=== PATIENT | female | born 1990 | race Caucasian/White ===

== ENCOUNTER → 2019-07-08 09:13 | Outpatient (CLI) | payer OTHER, SELFPAY ==
--- NOTE | 2019-07-08 09:19 | DI.US.S_ITS ---
PROCEDURE: US OB >= 14 WEEKS FETUS INDICATIONS: ANATOMY SCAN OUTSIDE/PRIOR DATING DATA: Last menstrual period (LMP): 02/16/19. LMP-based estimated date of delivery (ROMAN): 11/23/19. First dating scan (date and location): 07/08/19. Estimated date of delivery (ROMAN) from first dating scan: 11/20/19. TECHNIQUE: Real-time scanning was performed of the fetus, with image documentation and biometric measurements. Endovaginal scanning: Not performed COMPARISON: None. FINDINGS: General: Presentation: Breech. Placenta: Placental position is posterior, without previa. Amniotic fluid index: 16.9 cm, normal range is 5-24 cm. heart rate: 155 beats per minute. Maternal cervical canal: 3.8 cm long. Normal lower limit is 2.5 cm. biometrics: Biparietal diameter: 5.1 cm, 21 weeks 3 days Head circumference: 18.1 cm, 20 weeks 3 days Abdominal circumference: 16.2 cm, 21 weeks 2 days Femur length: 3.1 cm, 19 weeks 5 days Estimated gestational age from initial scan: 20 weeks 2 days Composite gestational age from present scan: 20 weeks 5 days Estimated weight and percentile: 363 g, 62nd percentile Measurement variability for biometric dating: +/- 7 days from 14 weeks to 15 weeks 6 days gestation, +/- 10 days from 16 weeks to 21 weeks 6 days gestation, +/- 2 weeks from 22 weeks to 27 weeks 6 days gestation, +/- 3 weeks for 28 weeks gestation or later. weight reference: 4500 g or EFW >90/95% is considered macrosomia or large for gestational age. EFW <10% is small for gestational age. EFW 5% or less is considered intra-uterine growth restriction. Anatomic survey: Neuro: Ventricles are non-dilated at less than 10 mm. Cisterna magna is normal at 3-11 mm. Cerebellum is normal in size and morphology. Nuchal skin fold: Normal at less than 6 mm between 14-21 weeks gestational age. Face: Nose and lips, facial profile are normal. Spine: No evidence for spina bifida. Heart: 4-chambered heart is present, with normal ventricular outflow tracts. Diaphragm: Diaphragm is intact. Stomach: Left-sided stomach is present. Kidneys: No hydronephrosis. Normal is less than 5 mm in 2nd trimester, less than 7 mm in 3rd trimester. Cord: 3-vessel cord has orthotopic insertion. Bladder: Normal in size. Extremities: All 4 extremities identified. IMPRESSION: Single living intrauterine fetus in breech presentation demonstrating appropriate interval growth as above Normal anatomic survey Dictated by: Quentin Pastor M.D. on 07/08/2019 at 13:52 Approved by: Quentin Pastor M.D. on 07/08/2019 at 13:54
== END ==
PROVIDERS: PCP Family Medicine; Referring Provider Family Medicine; Visit Provider Family Medicine
DX: Z34.82 Encounter for supervision of other normal pregnancy, second trimester (principal); Z3A.20 20 weeks gestation of pregnancy
CPT/HCPCS: 76811

== ENCOUNTER → 2019-08-12 06:56 | Outpatient (CLI) | payer OTHER, SELFPAY ==
[2019-08-12 07:40] LABS: Hematocrit 34.2 % (36-46); Hemoglobin 11.6 g/dL (12.0-16.0); Mean Corpuscular HGB Conc 33.9 % (30-36); Mean Corpuscular Hemoglobin 30.5 PG (26-34); Platelet Count 260 X10^3/uL (150-400); Red Cell Distribution Width 12.8 % (11.6-14.8); White Blood Cell Count 9.1 X10^3/uL (4.5-11.0)
[2019-08-12 07:50] LABS: Glucose Fasting 84 mg/dL (70-100)
[2019-08-12 10:13] LABS: Glucose Tol Interpretation INTERPRETATION
[2019-08-12 10:26] LABS: Glucose 2 Hour 114 mg/dL (70-140)
[2019-08-12 10:26] LABS: Glucose 1 Hour 130 mg/dL (70-170)
== END ==
PROVIDERS: PCP Nurse Practitioner Obstetrics & Gynecology; Referring Provider Nurse Practitioner Obstetrics & Gynecology; Visit Provider Nurse Practitioner Obstetrics & Gynecology
DX: Z34.02 Encounter for supervision of normal first pregnancy, second trimester (principal); Z13.1 Encounter for screening for diabetes mellitus; Z67.91 Unspecified blood type, Rh negative
CPT/HCPCS: 36415; 82951; 82952; 85027; 86850

== ENCOUNTER → 2019-10-26 19:10 | Outpatient (ROUT) | payer OTHER, SELFPAY | PROVIDERS: PCP Nurse Practitioner Obstetrics & Gynecology; Visit Provider Nurse Practitioner Obstetrics & Gynecology | DX: Z34.90 Encounter for supervision of normal pregnancy, unspecified, unspecified trimester (principal); Z36.85 Encounter for antenatal screening for Streptococcus B; Z3A.36 36 weeks gestation of pregnancy | CPT/HCPCS: 87081 ==

== ENCOUNTER 2019-11-10 23:19 | Observation (INO) | payer OTHER, SELFPAY ==
--- NOTE | 2019-11-10 23:31 | P.TNLD_ITS ---
Visit Information Visit Information Date of evaluation: 11/10/19 Primary OB Provider: Vianey Sahu On-call OB Provider: Vianey Sahu Reason for Evaluation: Yes rule out labor Comments/Additional reasons for admission: 29YO @ [id number] by LMP and 12 wk US presents for evaluation of labor. Contractions started this evening and have slowly progressed in frequency and intensity. +FM. NO LOF. Noticed small vaginal bleeding around 2230. Tolerating contractions well, unable to sleep through them, not yet breathing through them. Uncomplicated PN care w/ CNM. Desires low intervention . [facility] Medical History (Updated 11/10/19 @ 23:36 by Vianey Sahu CNM) History of ITP (Acute) Surgical History (Updated 11/10/19 @ 23:37 by Vianey Sahu CNM) History of augmentation of both breasts (Acute) Social History (Updated 11/10/19 @ 23:37 by Vianey Sahu CNM) marital status: household members: spouse lives independently: Yes caregiver/support person: No housing: house education level: college occupational status: employed [employer]: [employer] Review of Systems Review of Systems ROS: Yes All systems reviewed with the patient and are negative except as otherwise documented Exam Vital Signs (past 8 hours): BP 120/77, HR100, RR16, T97.7F Temporal Presentation: vertex Evaluation Evaluation Baseline heart rate: 135 Variability: Moderate (11-25) monitor accelerations: Present monitor decelerations: Absent Contraction Frequency (minutes): 3 Uterine Contraction Intensity: Mild Category of Tracing: I Cervical dilation (cm): 1 Cervical effacement (%): 70 station: -1 Diagnosis, Plan/Disposition Plan/Disposition Plan: A: Term primipara Early labor No indication for GBS prophylaxis Cat I FHR P: Cpunseled on minimal cervical change since last exam in clinic. Offered 2 hour recheck. Pt plans to stay, rather than drive 30 minutes home and back. OB Disposition: other (observation)
== END 2019-11-11 02:07 | disposition home or self-care (01) ==
PROVIDERS: Admitting Provider Nurse Practitioner Obstetrics & Gynecology; PCP Nurse Practitioner Obstetrics & Gynecology; Referring Provider Nurse Practitioner Obstetrics & Gynecology; Visit Provider Nurse Practitioner Obstetrics & Gynecology
DX: Z3A.38 38 weeks gestation of pregnancy (principal)
CPT/HCPCS: 59025; 59050; G0378; G0379

== ENCOUNTER 2019-11-11 06:17 | Inpatient (IN) | payer OTHER, SELFPAY ==
--- NOTE | 2019-11-11 06:22 | P.HPOB_ITS ---
OB HPI Date/Time Date of admission: 11/11/19 Date Patient Seen: 11/11/19 Time Patient Seen: 06:10 History of Present Condition Chief complaint: evaluation of labor : 1 Para: 0 Estimated Date of Delivery: 11/23/19 Estimated Gestational Age (weeks): 38.2 Narrative: Anne Ghosh is a 29 year old female @ [id number] here for evaluation of labor. Contractions started last evening, immediately 2-3 minutes apart and slowly increasing in intensity. Was seen in triage [id number] with minimal cervical change. Now reports SROM @ 0530, brown fluid. No VB. Breathing through strong contractions, requesting epidural. Uncomplicated PN care w/ transfer of care from [facility] to [facility] @ 20wks. is present and supportive. History of Present care: good care Dating criteria: LMP confirmed by 1st trimester US Ultrasounds: normal mid trimester US Obstetrical complications: none Medical complications: none Preadmission Labs Blood type: B (-) negative -: Antibody screen: negative, GBS status: negative, HBsAG: negative, HIV: negative and RPR/VDLR: negative -: Chlamydia screen: not detected and Gonorrhea screen: not detected -: Rubella: immune and Varicella: immune HCT: 34.2 HCAB: negative 3 hr GTT: 2 hr (84/130/114) Evaluation Evaluation Baseline heart rate: 145 Variability: Moderate (11-25) monitor accelerations: Absent monitor decelerations: Variable Contraction Frequency (minutes): 2 Uterine Contraction Intensity: Strong/Firm Category of Tracing: II Cervical dilation (cm): 3 Cervical effacement (%): 90 station: -1 Non-invasive Membranes Rupture Test: positive Comments: ROM visually confirmed, copious meconium stained amniotic fluid [facility] Medical History History of ITP (Acute) Surgical History History of augmentation of both breasts (Acute) Social History marital status: household members: spouse lives independently: Yes caregiver/support person: No housing: house education level: college occupational status: employed [employer]: [employer] Med[employer] Home Medications and Allergies Home Medications Medication Instructions Recorded Confirmed Type Claritin 1 tab 11/11/19 History no.144-folic acid 1 mcg PO 11/11/19 History [] Allergies Allergy/AdvReac Type Severity Reaction Status Date / Time Sulfa (Sulfonamide Allergy Unknown Verified 11/11/19 06:33 Antibiotics) Review of Systems Review of Systems ROS: Yes All systems reviewed with the patient and are negative except as otherwise documented Exam Vital Signs (past 8 hours): BP 121/84, HR 94bpm, T97.8F Temporal Uterus Location (Fundal Height): 38 Presentation: vertex Estimated Weight (lbs): 7 Amniotic Fluid: meconium Objective Labs Result Diagrams: 11/11/19 06:30 Labs: CBC and T&S pending Assessment and Plan Assessment and Plan Assessment and Plan narrative: A: Term primipara SROM x 1 hours without sx of infection Meconium stained amniotic fluid No indication for GBS prophylaxis Cat II FHR, overall reassuring P: Admit, routien orders w/ CBC, T&S and epidural DIANDRA. Continuous labor support. Will notify OB back-up of patient admission status and POC. Continuous EFM. Reassess in 2-4 hours or sooner, PRN. Time Spent with Patient Total time spent with greater than 50% in coordination of care (as documented) at patient's floor/unit and/or counseling patient:: 15-24 minutes
[2019-11-11 06:47] LABS: Add Manual Diff / Slide Review NO; Basophils Absolute Auto 100 /uL (0-100); Basophils Percent Auto 0.7 % (0-2); Eosinophils Absolute Auto 100 /uL (0-450); Eosinophils Percent Auto 0.7 % (2-4); Hematocrit 35.4 % (36-46); Hemoglobin 11.6 g/dL (12.0-16.0); Lymphocytes Absolute Auto 1800 /uL (1100-4500); Lymphocytes Percent Auto 12.4 % (25-40); Mean Corpuscular HGB Conc 32.7 % (30-36); Mean Corpuscular Hemoglobin 26.8 PG (26-34); Monocytes Absolute Auto 1000 /uL (0-900); Monocytes Percent Auto 6.6 % (3-14); Neutrophils Absolute Auto 11800 /uL (1500-7000); Neutrophils Percent Auto 79.6 % (50-75); Platelet Count 202 X10^3/uL (150-400); Red Blood Cell Count 4.32 X10^6/uL (4.0-5.2); Red Cell Distribution Width 13.6 % (11.6-14.8); White Blood Cell Count 14.8 X10^3/uL (4.5-11.0)
[2019-11-11] MEDS: FENT 2MCG/ML BUPIV 0.125% EPI 200 MCG/100 ML PLAST..BAG 10 MCG EPIDURAL ×2 (07:10→15:04)
[2019-11-11] MEDS: LACTATED RINGERS 1,000 ML 100 ML IV ×5 (07:10→22:59)
[2019-11-11 07:51] VITALS: BP 121/89
[2019-11-11 08:00] LABS: COVID19 -Nasal RAPID Negative (Negative)
--- NOTE | 2019-11-11 13:06 | PM.OBPNLAB ---
Date/Time Date Patient Seen: 11/11/19 Time Patient Seen: 10:00 Pain Control Pain control: epidural Comments: More comfortable after epidural placement, though working w/ anesthesia to improve persistent pain on left side. Continues leaking of moderate amounts of meconium stained amniotic fluid. Pelvic Exam Dilation (cm): 6 Effacement (%): 90 station: -1 Comments: bloody show on glove Contractions Date/Time contractions began: 11/10/19 @ 1900 Contractions on admission: regular Monitor mode: External Pitocin rate (mU/min): 0 Contraction frequency (min): 3 Contraction duration (min): 1 Contraction pattern: Regular Contraction intensity: Strong/Firm Status status: Category ll Heart Rate Baseline: 150 Monitor Accelerations: Present Monitor Decelerations: Early Monitor Variability: Moderate Comments: Occasional early and variable declerations, rare late decelerations, none recurrent. Assessment and Plan Assessment: active labor Plan: continuous present management Comments: aware of FHR, meconiums stained amniotic fluid and labor progress. Encourage frequent position changes w/ peanut ball. Reassess in 4 hours or sooner, PRN.
--- NOTE | 2019-11-11 14:16 | PM.OBPNLAB ---
Date/Time Date Patient Seen: 11/11/19 Time Patient Seen: 14:00 Pain Control Pain control: epidural Pelvic Exam Dilation (cm): 7 Effacement (%): 90 station: -1 Amniotic membrane status: Leaking Comments: Meconium stained amnioitic fluid and bloody show. Anterior cervix is slightly swollen. Contractions Contractions on admission: regular Monitor mode: External Pitocin rate (mU/min): 0 Contraction frequency (min): 2 Contraction duration (min): 1 Contraction pattern: Regular Contraction intensity: Moderate Status status: Category ll Heart Rate Baseline: 155 Monitor Accelerations: Present Monitor Decelerations: Early Monitor Variability: Moderate Comments: Primarily Cat I, overall reassuring. Assessment and Plan Assessment: active labor Plan: continuous present management Comments: Counseled on slow progress and recommend more position changes (adding exaggerated Lugo and high cotter's). Reassess in 2 hours. Will consider IUPC if no change at that time.
[2019-11-11 17:07] LABS: Add Manual Diff / Slide Review NO; Basophils Absolute Auto 100 /uL (0-100); Basophils Percent Auto 0.4 % (0-2); Eosinophils Absolute Auto 0 /uL (0-450); Hematocrit 32.8 % (36-46); Hemoglobin 10.8 g/dL (12.0-16.0); Lymphocytes Absolute Auto 1000 /uL (1100-4500); Lymphocytes Percent Auto 5.6 % (25-40); Mean Corpuscular Hemoglobin 27.1 PG (26-34); Monocytes Absolute Auto 1400 /uL (0-900); Monocytes Percent Auto 8.3 % (3-14); Neutrophils Absolute Auto 14800 /uL (1500-7000); Neutrophils Percent Auto 85.7 % (50-75); Platelet Count 238 X10^3/uL (150-400); Red Cell Distribution Width 13.5 % (11.6-14.8); White Blood Cell Count 17.3 X10^3/uL (4.5-11.0)
[2019-11-11] MEDS: OXYTOCIN PREMIX 30 UNIT/500 ML PLAST..BAG IV (18:10)
--- NOTE | 2019-11-11 18:13 | PM.OBPNLAB ---
Date/Time Date Patient Seen: 11/11/19 Time Patient Seen: 18:00 Pain Control Pain control: epidural Comments: Tolerating frequent position changes well. Has been able to get some sleep. VS: BP 115/69, HR 123, T 37.6C Temporal, repeat oral temp 99.3F Pelvic Exam Dilation (cm): 8 Effacement (%): 90 station: -1 Amniotic membrane status: Leaking Comments: No change since exam at 1600. IUPC placed and initial MVUs 110. Contractions Contractions on admission: regular Monitor mode: External Pitocin rate (mU/min): 0 Contraction frequency (min): 2 Contraction pattern: Regular Contraction intensity: Moderate Intrauterine tone measurement: 110 Status status: Category ll Heart Rate Baseline: 170 Monitor Accelerations: Present Monitor Decelerations: Absent Monitor Variability: Moderate Assessment and Plan Assessment: active labor Plan: begin patient augmentation Comments: Counseled patient on persistent OP presentation, minimal cervical change and inadequate MVUs. Recommend starting pitocin augmentation and started conversation on possible need for . Patinet agrees to pitocin and wants to continue to try for a vaginal . Counseled patient on tachycardia, intermittent maternal tachycardia and slightly elevated WBCs while remaining afebrile. Will continue to monitor temperature closely. Notified of maternal and status and plan of care. Reassess in 2 hours w/ repeat CE after 2 hours of adequate contractions.
--- NOTE | 2019-11-11 20:50 | PM.OBPNLAB ---
Date/Time Date Patient Seen: 11/11/19 Time Patient Seen: 20:45 Pain Control Pain control: epidural Comments: BP 119/70, HR 121bpm, T 38C Temporal Pelvic Exam Dilation (cm): 8 Effacement (%): 90 station: -1 Amniotic membrane status: Leaking Comments: meconium stained. IUPC in place Contractions Contractions on admission: regular Monitor mode: External Pitocin rate (mU/min): 5 Contraction frequency (min): 2 Contraction duration (min): 2 Contraction pattern: Regular Contraction intensity: Moderate Intrauterine tone measurement: 220 Status status: Category ll Heart Rate Baseline: 165 Monitor Accelerations: Present Monitor Decelerations: Variable Monitor Variability: Moderate Assessment and Plan Plan: Comments: Counseled patient on recommendation for arrest of active phase labor w/ likely confirmation of chorioamnionitis if temp >100.4 confirmed in 30 minutes. Patient agrees. Pitocin stopped and IUPC removed. Alex Silva, and notified.
[2019-11-11 21:06] VITALS: TEMP 38
[2019-11-11] MEDS: ACETAMINOPHEN 325 MG TABLET 975 MG PO (21:06)
[2019-11-11] MEDS: CEFAZOLIN 2 GM/100 ML FROZ.PIGGY IV (21:06)
--- NOTE | 2019-11-11 21:28 | PM.PREOP ---
Pre-operative Note COVID-19 COVID-19 status: Negative Result date/Date tested (Pos, Neg/Pending): 11/11/19 Interval Note History & Physical reviewed/Exam performed by Physician: Yes Changes to H&P: Yes H&P completed within 30 days and has changed as indicated here:: pt progressed in labor to 7 cm and had arrest of active phase of labor at 7 cm. Pt was consented to proceed with C section for delivery. I was consulted for the arrest of active phase and C section.
--- NOTE | 2019-11-11 21:31 | PM.CN ---
History of Present Illness Consult details Date Patient Seen: 11/11/19 Time Patient Seen: 21:20 Chief complaint: evaluation of labor Reason for consult: arrest of active phase of labor Requesting provider: Vianey Sahu Narrative: 29-year-old G1 female presented at 38 weeks with spontaneous rupture membranes in early labor early this morning. She progressed to 7-8 cm and had no further cervical change. Baby was noted to be in the OP position. IUPC placed and contractions were inadequate. Pitocin was started and MVU measured by IUPC showed adequate contractions for 2 hours but there was no further cervical change. I was consulted for section for delivery, due to the arrest of the active phase labor. Baby intermittently had baseline FHR rate to 170, but she was afebrile. WBC checked and it was 17. On arrival early this morning it was 14.8 so not a large increased. She was observed. FHR decreased to 150-160 with intermittent 170. Variability was moderate. There was only a rare mild variable deceleration. At approximately 830 she developed a temperature to 100.4? F. Antibiotics were started at that time. Since I had been consulted for the at this time, the patient received Ancef for preoperative prophylaxis and to start for the fever, for possible intrauterine infection. Meds Home Medications and Allergies Home Medications Medication Instructions Recorded Confirmed Type no.144-folic acid 1 mcg PO DAILY 11/11/19 11/11/19 History [] Allergies Allergy/AdvReac Type Severity Reaction Status Date / Time Sulfa (Sulfonamide Allergy Unknown Verified 11/11/19 06:33 Antibiotics) Exam Vital Signs (past 8 hours): - 11/11/19 21:06 Temperature 100.4 F H Narrative Exam Narrative: General: Patient appears uncomfortable when contractions occur. No acute distress between contractions. Cervical exam at approximately 8:30 pm 7-8 cm per M Sven CARRERA EFM: Currently baseline 155-160, moderate variability, rare mild variable deceleration. Positive acceleration. Category 2 [place] Q 3 minutes contraction Objective Labs Result Diagrams: 11/11/19 16:43 Labs: Laboratory Results - last 24 hr 11/11/19 11/11/19 11/11/19 06:25 06:30 06:30 WBC 14.8 H RBC 4.32 Hgb 11.6 L Hct 35.4 L MCV 82.0 MCH 26.8 MCHC 32.7 RDW 13.6 Plt Count 202 Neut % (Auto) 79.6 H Lymph % (Auto) 12.4 L [place] % (Auto) 6.6 Eos % (Auto) 0.7 L Baso % (Auto) 0.7 Neut # (Auto) 64682 H Lymph # (Auto) 1800 [place] # (Auto) 1000 H Eos # (Auto) 100 Baso # (Auto) 100 COVID-19 PCR Negative Blood Type B Negative Antibody Screen Negative 11/11/19 16:43 WBC 17.3 H RBC 4.00 Hgb 10.8 L Hct 32.8 L MCV 82.0 MCH 27.1 MCHC 33.0 RDW 13.5 Plt Count 238 Neut % (Auto) 85.7 H Lymph % (Auto) 5.6 L [place] % (Auto) 8.3 Eos % (Auto) 0.0 L Baso % (Auto) 0.4 Neut # (Auto) 56529 H Lymph # (Auto) 1000 L [place] # (Auto) 1400 H Eos # (Auto) 0 Baso # (Auto) 100 COVID-19 PCR Blood Type Antibody Screen Assessment & Plan Assessment and plan (1) Arrested active phase of labor: Status: Acute (2) Intrapartum fever: Status: Acute Assessment & Plan narrative: Patient consented to proceed with section for delivery. I discussed the procedure. I discussed small risk of bleeding, infection, injury to adjacent organs including bowel, bladder and ureters. I discussed small risk of injury to the baby. Verbal and written consent obtained. Ancef currently infusing for coverage for the intrapartum fever, with the ROM. She had some intermittent tachycardia but no persistent tachycardia. Tylenol given. OR crew already notified and currently OR room is being cleaned after a prior lower case. To proceed to the OR shortly.
--- NOTE | 2019-11-11 22:13 | SUR.OPER ---
Supine on Padded OR bed, head on pillow, safety belt at thigh, arms secured on padded arm boards at <90 degrees abduction. Bump under right buttock. Legs uncrossed with pillow under knees, gel pad to heels, tape over blanket to lower legs.
--- NOTE | 2019-11-11 22:23 | SUR.OPER ---
live female at 2223
[2019-11-11 23:23] VITALS: BP 104/69; PULSE 96; RESP 16; TEMP 36.7; O2SAT 97
--- NOTE | 2019-11-11 23:23 | PM.PROC.1 ---
Procedures Date/Time Date of procedure: 11/11/19 Time of procedure: 22:23 General Procedure description: I assisted the OB institutional asset manager in the section for this patient. My responsibilities included retracting and suctioning, providing fundal pressure during delivery and following with suture during closure. Please see the OB's note for details of the surgery. Complications: none
--- NOTE | 2019-11-11 23:26 | PM.OP.1 ---
Operative Date/Time/Diagnoses Date of procedure: 11/11/19 Time of procedure: 23:26 Pre-op diagnosis: Thirty weeks, arrest of active phase of labor Post-op diagnosis: same (Persistent OP position) Procedure & Clinicians Procedure: Primary lower transverse section Same procedure as scheduled: Yes Indications: Arrest of active phase of labor at 7 cm despite adequate contractions, documented by adequate MVU. Persistent OP position on exam Surgeon: Mckenna Capone Biochemistry Technician: Vianey Sahu Anesthesia Type: Spinal Operative Notes Findings: Baby's head was low in the pelvis, OP position. A viable vigorous female was delivered. Weight and Apgars pending. Normal uterus and ovaries. Closure Type: primary Specimen(s): other (Cord blood collected for storage and cord blood to lab.) Estimated Blood Loss (mL): 500 Procedure in detail: IV fluids: 2000 ml crystalloid Urine output: 600 mL Description of procedure: She was transferred from the center to the operating room. Her epidural anesthesia was giving less relief the last hour labor. Attempt made to bolus her epidural for the but the anesthesia was not adequate. Epidural catheter was pulled by anesthesia and spinal anesthesia was placed. She was placed in the supine position. Horn catheter was already in place. She was placed in the supine position and she was prepped and draped in routine sterile fashion. A Pfannenstiel skin incision was made in the lower abdomen and carried down to the level of the fascia. The fascia was incised in the midline and was bluntly extended transversely. The superior and inferior edges of the fascia were elevated and dissected off the rectus muscles with sharp and blunt dissection. The muscles were bluntly split in the midline. The parietal peritoneum was elevated, incised and extended bluntly. The bladder blade was placed. No distinct visceral peritoneal reflection, bladder flap was noted and the bladder flap was not taken down. The bladder blade retractor was placed. A transverse incision was made in the lower uterus and the incision was extended transversely with blunt dissection. Light meconium fluid was noted. The head was low in the pelvis. It palpated to be OP. The head was able to be dislodged and elevated to the uterine incision without difficulty. The head was delivered through the incision with some mild fundal pressure. A loop of cord was noted near the shoulders, but was not wrapped around the body. No nuchal cord was present. Anterior and posterior shoulders followed by the body were delivered without difficulty. The cried spontaneously. Delayed cord clamping was performed for 30 seconds. Cord was then clamped and cut and the was handed off to respiratory therapy who was present for delivery. The umbilical cord was then prepped with the patient's cord blood collection kit sterile dry cleaner. Using the cord blood collection kit, the placenta was punctured and cord blood was collected. When no further blood flows through the umbilical cord, the specimen was handed off. The placenta was manually removed. It appeared intact with a normal three-vessel cord. . The uterus was brought through the abdominal incision and was swept clean of adherent clots and membranes. The uterus was then closed in 2 layers with 0 Vicryl, the 1st layer being in running locking continuous fashion and the 2nd layer being in a vertical imbricating type fashion. Hemostasis was noted. The tubes and ovaries were inspected and noted to be normal. Posterior to the uterus was suction of some fluid and blood. The uterus was placed back into the maternal abdomen. The paracolic gutters were inspected and wiped of some clot, minimal blood and fluid. The anterior cul-de-sac was inspected and some clot was removed. The uterine incision was re- inspected and good hemostasis was noted. The pelvis was irrigated. Repeat inspection showed continued hemostasis. The abdomen was closed. The muscles were reapproximated with 3 interrupted sutures of 0 Vicryl. The inferior surface of the fascia was inspected where the muscles had been dissected off and hemostasis was noted in this area. Fascia was closed with running continuous suture of 0 Vicryl. She did not have much depth to her subcutaneous tissue. The subcutaneous tissue was irrigated. A small capillary was coagulated for hemostasis. The skin was closed with a subcuticular suture of 4 0 Monocryl. Steri-Strips and sterile Aquacel dressing was placed. She tolerated the procedure well and went to the recovery room in stable condition. Complications: none Post-operative Condition: stable Disposition: PACU [facility]care[facility]
[2019-11-11 23:28] VITALS: BP 107/74; PULSE 100; RESP 13; O2SAT 98
[2019-11-11 23:33] VITALS: BP 112/63; PULSE 87; RESP 16; O2SAT 98
[2019-11-12] MEDS: KETOROLAC 30 MG/ML VIAL IV ×3 (07:18→18:12)
[2019-11-12] MEDS: LACTATED RINGERS 1,000 ML 100 ML IV (07:18)
[2019-11-12 08:02] LABS: Add Manual Diff / Slide Review NO; Basophils Absolute Auto 100 /uL (0-100); Basophils Percent Auto 0.4 % (0-2); Eosinophils Absolute Auto 0 /uL (0-450); Eosinophils Percent Auto 0.1 % (2-4); Hematocrit 25.9 % (36-46); Hemoglobin 8.5 g/dL (12.0-16.0); Lymphocytes Absolute Auto 1300 /uL (1100-4500); Lymphocytes Percent Auto 7.6 % (25-40); Mean Corpuscular Hemoglobin 26.8 PG (26-34); Mean Corpuscular Volume 81.3 fL (80-100); Monocytes Absolute Auto 1400 /uL (0-900); Neutrophils Absolute Auto 14400 /uL (1500-7000); Neutrophils Percent Auto 83.9 % (50-75); Platelet Count 216 X10^3/uL (150-400); Red Blood Cell Count 3.18 X10^6/uL (4.0-5.2); Red Cell Distribution Width 13.9 % (11.6-14.8); White Blood Cell Count 17.2 X10^3/uL (4.5-11.0)
[2019-11-12] MEDS: DOCUSATE 250 MG CAPSULE PO (09:10)
--- NOTE | 2019-11-12 09:32 | PM.PNPO.1 ---
Subjective Subjective Date Patient Seen: 11/12/19 Time Patient Seen: 09:33 Interval history: Patient feels well. Incisional discomfort overall controlled. She is only currently using the Toradol. Currently , baby latched well this morning. Lochia is normal Tolerating oral food. No flatus yet. Horn catheter still in place. Denies fever, chills, nausea or emesis. Exam Vital Signs (past 8 hours): Oxygen Delivery Method Room Air Afebrile BP 107/63 pulse 1 0 to respiratory rate 18 Narrative Exam Narrative: General: Well-appearing female Abdomen: Soft, nontender, nondistended. Dressing intact, only 1 tiny old blood stained area Fundus U -2, firm, nontender Extremities: Trace pedal edema Objective Labs Result Diagrams: 11/12/19 07:57 Labs: Laboratory Results - last 24 hr 11/11/19 11/12/19 16:43 07:57 WBC 17.3 H 17.2 H RBC 4.00 3.18 L Hgb 10.8 L 8.5 L Hct 32.8 L 25.9 L MCV 82.0 81.3 MCH 27.1 26.8 MCHC 33.0 33.0 RDW 13.5 13.9 Plt Count 238 216 Neut % (Auto) 85.7 H 83.9 H Lymph % (Auto) 5.6 L 7.6 L [place] % (Auto) 8.3 8.0 Eos % (Auto) 0.0 L 0.1 L Baso % (Auto) 0.4 0.4 Neut # (Auto) 35590 H 74154 H Lymph # (Auto) 1000 L 1300 [place] # (Auto) 1400 H 1400 H Eos # (Auto) 0 0 Baso # (Auto) 100 100 Assessment & Plan Post-op Postoperative Procedures: Procedures Operation Date: 11/11/19 21:45 Actual Procedures Side Surgeon p Section Mckenna Capone MD Postoperative day: 1 Postoperative status: doing well Postoperative status narrative: Await GI return Postoperative plan: routine post-op care Postoperative plan narrative: Discontinue Horn catheter Time Spent With Patient Time with patient: less than 15 minutes
[2019-11-12] MEDS: diphenhydrAMINE 50 MG/ML VIAL 25 MG IV (12:15)
[2019-11-12 17:08] VITALS: TEMP 36.8
[2019-11-12] MEDS: OXYCODONE IR 5 MG TABLET PO ×2 (17:08→21:42)
[2019-11-12] MEDS: LANOLIN OINT 7 GM 1 APPLIC TOP (17:08)
[2019-11-13] MEDS: IBUPROFEN 600 MG TABLET PO ×2 (02:27→12:19)
[2019-11-13] MEDS: OXYCODONE IR 5 MG TABLET PO ×4 (02:28→16:50)
[2019-11-13] MEDS: DOCUSATE 250 MG CAPSULE PO (08:08)
--- NOTE | 2019-11-22 16:52 | P.DS_ITS ---
History of Present Illness History of Present Illness Date Patient Seen: 11/13/19 Time Patient Seen: 13:00 Chief complaint: evaluation of labor Narrative: 29-year-old G1 female was admitted by her primary OB provider, Vianey Sahu CNM, at 38 weeks 2 days with spontaneous rupture membranes and labor. Discharge Providers Provider Date of admission: 11/11/19 06:17 Discharge Date: 11/13/19 Primary care physician: Vianey Sahu CNM Consults: 11/11/19 06:21 Consult to Anesthesiology Urgent Comment: Consulting Provider: Anesthesiologist Reason for consultation: when requested Has provider been notified: No 11/11/19 23:48 Consult to Renovator Machine Operator Routine Comment: Discharge provider: Mckenna Capone MD Summary Hospital Course Discharge Diagnosis: Arrest of active phase of labor Status post primary lower transverse section Hospital Course: Patient progressed in active labor to 7-8 cm. She had no further cervical change. Baby appeared to be persistent OP position. IUPC was placed and contractions were noted to be in adequate. She received Pitocin. After 2 hours of adequate contractions she had no further cervical change and I was consulted for primary section for delivery. The patient also just developed an intrapartum fever. Baby had intermittently had some tachycardia, but then returned to normal heart rate. She was given heard preoperative dose of Ancef at the time of calling the to also cover for the intrapartum fever. She had a primary lower transverse section without complications. She delivered a viable female infant weighing 7 lb 13 oz with Apgars of 8 and 9. She had a normal postoperative course. The baby did . She is without problems. She had normal GI return. Lochia was normal. Her pain was controlled with the pain medication. She was discharged home on postoperative day 2 in good condition. Status at Discharge Cognitive/behavioral status at discharge: oriented Functional status at discharge: independent ambulation Overall status at discharge: patient is progressing back to baseline Time Spent with Patient Time spent: Less than 30 minutes Exam Vital Signs (past 8 hours): Oxygen Delivery Method Room Air Afebrile, BP normal. Narrative Exam Narrative: General: Well-appearing female. No acute distress Abdomen soft, nontender, nondistended. Dressing was dry, but not adhering well in 1 area and her Aquacel dressing was replaced. The incision was dry and intact area, no erythema or signs of infection. Fundus U -2, firm, nontender Extremities. Trace pedal edema Objective Labs Result Diagrams: 11/12/19 07:57 Discharge Plan Discharge Plan Patient Disposition: Home Discharge orders & Medications Prescriptions: New Wob-U-Boxhhu Cream 1 applic topical PRN PRN (Reason: ) Qty: 0 RF: 0 ibuprofen 800 mg tablet 800 mg PO Q8H PRN (Reason: pain) Qty: 60 RF: 0 Continued 400 mcg Tablet,Chewable 1 mcg PO DAILY RF: 0 No Action metoclopramide HCl [Reglan] 10 mg tablet 10 mg PO TID Qty: 21 RF: 0 Follow up/Referrals: Vianey Sahu CNM [Primary Care Provider] - 6 Weeks Mckenna Cpaone MD [Physician] - 1 Week (please follow up naz/ Estelita on November 19 @ 1130am & follow up naz/ Vianey as previously discussed) Discharge Health Status Multidrug resistant organism: No MDRO Diet/Activity/Treatments Diet: Regular Activity: No heavy lifting. Nothing in the vagina for 6 weeks. May gradually increased walking. Skin/Wound/Dressing Care Dressing: Leave in place. It will be removed at your appointment in 1 week. May shower. It is okay for the dressing to get wet. Other wound treatment: Call if you develop any significant redness around the dressing. Call for persistent fever greater than 100.0, chills, severe or worsening lower abdominal pain or heavy vaginal bleeding. Visit Report/Discharge Packet Instructions: DI for Stand Alone Forms: Discharge: Care Discharge Data Primary Care Provider: Vianey Sahu Discharges patient from system. Discharge Date/Time: 11/13/19 17:37
== END 2019-11-13 17:37 | disposition home or self-care (01) | DRG 787 ==
PROVIDERS: Obstetrics & Gynecology; Admitting Provider Nurse Practitioner Obstetrics & Gynecology; PCP Nurse Practitioner Obstetrics & Gynecology; Referring Provider Nurse Practitioner Obstetrics & Gynecology; Visit Provider Nurse Practitioner Obstetrics & Gynecology
PROC: 10D00Z1 Extraction of Products of Conception, Low, Open Approach (ICD-10-PCS; CPT 59514; principal; 2019-11-11 21:45)
DX: O77.0 Labor and delivery complicated by meconium in amniotic fluid (principal); O75.2 Pyrexia during labor, not elsewhere classified; O76 Abnormality in fetal heart rate and rhythm complicating labor and delivery; O62.1 Secondary uterine inertia; Z3A.38 38 weeks gestation of pregnancy; Z37.0 Single live birth
CPT/HCPCS: 01967; 01968; 36415; 59025; 59050; 59514; 85025; 86850; 86870; 86900; 86901; 87635; G0378; G0379; J0690; J1200; J1885; J2274; J2405; J2590; J3010